=== PATIENT | male | born 1985 | race African-American/Black ===

== ENCOUNTER 2019-05-06 21:41 | Emergency (ER) | payer SELFPAY ==
[~2019-05-06] VITALS: Ht 193 cm; Wt 91.0 kg
[2019-05-06] MEDS ORDERED: ALBUTEROL (0.083%) 2.5MG/3ML NEB HHN STA (22:04)
[2019-05-06] MEDS ORDERED: METHYLPREDNISOLONE SOD SUCC 125 MG/2 ML VIAL IV STA (22:04)
[2019-05-06] MEDS ORDERED: IPRATROPIUM BROMIDE (0.02%) 0.5MG/2.5ML NEB HHN STA (22:04)
[2019-05-06 22:39] LABS: BASOPHILS % 0.6 % (0.0-2.0); EOSINOPHILS % 3.2 % (0.0-5.0); HEMATOCRIT. 49.3 % (42.0-52.0); HEMOGLOBIN. 16.8 g/dL (14.0-18.0); LYMPHOCYTES % 23.2 % (20.0-50.0); MEAN CORPUSCULAR HEMOGLOBIN 32.8 pg (28.0-32.0); MEAN CORPUSCULAR VOLUME 96.6 fL (80.0-94.0); MEAN PLATELET VOLUME 9.4 fl (7.4-10.4); PLATELET 237 x1000/uL (130-400); RED CELL DISTRIBUTION WIDTH 12.9 % (11.6-14.6)
[2019-05-06 22:41] LABS: CHLORIDE 107 mEq/L (98-107)
[2019-05-06 23:22] VITALS: BP 131/86
== END 2019-05-06 23:25 | disposition home or self-care (01) ==
LOC: ER 21:41
DX: J45.901 Unspecified asthma with (acute) exacerbation (principal); R06.03 Acute respiratory distress
CPT/HCPCS: 36415; 71045; 80053; 85025; 93005; 96374; 99285; J2930

== ENCOUNTER 2020-01-27 12:04 | Emergency (ER) | payer SELFPAY ==
[~2020-01-27] VITALS: Ht 193 cm; Wt 92.0 kg
[2020-01-27 12:18] VITALS: BP 139/62
[2020-01-27] MEDS ORDERED: IBUPROFEN 600MG TABLET PO ONE (14:30)
[2020-01-27] MEDS ORDERED: TETANUS, DIPHTHERIA, PERTUSSIS VAC/PF 0.5ML (>7YR OLD) IM ONE (15:30)
== END 2020-01-27 17:20 | disposition home or self-care (01) ==
LOC: ER 12:04
DX: S91.341A Puncture wound with foreign body, right foot, initial encounter (principal); M79.644 Pain in right finger(s); J45.909 Unspecified asthma, uncomplicated; W56.81XA Bitten by other nonvenomous marine animals, initial encounter; Y93.89 Activity, other specified; Y92.832 Beach as the place of occurrence of the external cause
CPT/HCPCS: 29130; 73140; 73610; 73630; 90471; 90715; 99284